=== PATIENT | female | born 1995 | race American Indian/Alaskan Native ===

== ENCOUNTER 2017-06-27 19:46 | Emergency (ER) | payer MEDICAID ==
[2017-06-27 20:39] LABS: Basophils % (Auto) 0.2 % (0.0-1.8); Eosinophils # (Auto) 0.2 K/mm3 (0.0-0.4); Eosinophils % (Auto) 1.9 % (0.0-4.3); Hematocrit 33.3 % (30.3-42.9); Hemoglobin 11.4 gm/dl (10.1-14.3); Lymphocytes # (Auto) 2.7 K/mm3 (1.2-5.4); Lymphocytes % (Auto) 22.2 % (13.4-35.0); Mean Corpuscular HGB Conc 34 % (30-34); Mean Corpuscular Hemoglobin 30 pg (28-32); Mean Corpuscular Volume 87 fl (79-97); Monocytes # (Auto) 0.8 K/mm3 (0.0-0.8); Monocytes % (Auto) 6.5 % (0.0-7.3); Platelet Count 266 K/mm3 (140-440); Red Blood Count 3.84 M/mm3 (3.65-5.03); Red Cell Distribution Width 13.9 % (13.2-15.2)
[2017-06-27 20:59] LABS: BUN/Creatinine Ratio 10; Blood Urea Nitrogen 5 mg/dL (7-17); Calcium 8.7 mg/dL (8.4-10.2); Hemolysis Index 10
[2017-06-28 04:53] LABS: Bacteria,Urine 1+ /HPF (Negative); Bilirubin,Urine NEG (Negative); Blood,Urine NEG (Negative); Color,Urine Yellow (Yellow); Mucus,Urine FEW /HPF; Nitrite,Urine NEG (Negative); Protein,Urine <15 mg/dL mg/dL (Negative)
[2017-06-28] MEDS ORDERED: TYLENOL PO ONE (06:33)
[2017-06-28] MEDS ORDERED: TYLENOL ONE (06:34)
--- NOTE | 2017-06-28 06:35 | Emergency Department Report ---
ED General Adult HPI - General Chief complaint: Abdominal Pain Stated complaint: CHEST PAIN,ABDOMINAL PAIN Time Seen by Provider: 06/28/17 06:24 Source: patient, RN notes reviewed, old records reviewed Mode of arrival: Ambulatory Limitations: No Limitations - History of Present Illness Initial comments: This is a 21-year-old female, the patient is previously unknown to this provider. The patient presents to the ER with 2 complaints. Her first complaint is bilateral lower abdominal pain. The pain is crampy, intermittent, increases with palpation, decreases with rest, and patient indicates his penis for a day or so. No fevers, chills, vomiting, urinary symptoms, patient is feeling constipated, and she has no vaginal discharge. She is not sure if she is . She thinks that she is . There is no vaginal bleeding. Next complaint is chest pain. The chest pain is central. It does not radiate to the back, arms or neck. There is no vomiting, there is no diaphoresis, there is no shortness of breath, there is no leg pain, there is no leg swelling , patient does not take oral contraceptives, as far she is aware, she's never had a blood clot either in the legs or lungs. -: Gradual, days(s) (1.5) Location: chest, abdomen Severity scale (0 -10): 0 Quality: aching Consistency: intermittent Improves with: rest Worsens with: movement Associated Symptoms: chest pain. denies: confusion, cough, diaphoresis, fever/ chills, headaches, loss of appetite, malaise, nausea/vomiting, rash, shortness of breath, syncope, weakness - Related Data Previous Rx's Medication Instructions Recorded Last Taken Type Ibuprofen [Motrin 800 MG tab] 800 mg PO Q8HR PRN #30 tablet 12/13/16 Unknown Rx Lidocain2.5%/Prilocai2.5% [Emla] 5 gm TP ONCE PRN #1 tube 12/13/16 Unknown Rx Acetaminophen [Tylenol Arthritis] 650 mg PO Q6HR PRN #30 tablet.er 06/28/17 Unknown Rx Doxylamine Succinate/Vit B6 1 each PO QHS PRN #30 tablet. 06/28/17 Unknown Rx [Candelario Rizzo 10-10 mg Tablet] Nitrofurantoin [place]/M-Cryst 100 mg PO Q12HR #14 capsule 06/28/17 Unknown Rx [Macrobid CAP] Vit Calc,Iron,Folic 1 each PO QDAY #30 tablet 06/28/17 Unknown Rx [ Vitamins] Allergies Allergy/AdvReac Type Severity Reaction Status Date / Time No Known Drug Allergies Allergy Unknown Verified 06/27/17 19:51 ED Review of Systems ROS: Stated complaint: CHEST PAIN,ABDOMINAL PAIN Other details as noted in HPI ED Past Medical Hx - Past Medical History Hx Hypertension: No Hx Congestive Heart Failure: No Hx Diabetes: No Hx Deep Vein Thrombosis: No Hx Renal Disease: No Hx Sickle Cell Disease: No Hx Seizures: No Hx Asthma: No Hx COPD: No Hx HIV: No - Surgical History Past Surgical History?: No - Social History Smoking Status: Never Smoker Substance Use Type: None - Medications Home Medications: Home Medications Medication Instructions Recorded Confirmed Last Taken Type Ibuprofen [Motrin 800 MG tab] 800 mg PO Q8HR PRN #30 tablet 12/13/16 Unknown Rx Lidocain2.5%/Prilocai2.5% [Emla] 5 gm TP ONCE PRN #1 tube 12/13/16 Unknown Rx Acetaminophen [Tylenol Arthritis] 650 mg PO Q6HR PRN #30 tablet.er 06/28/17 Unknown Rx Doxylamine Succinate/Vit B6 1 each PO QHS PRN #30 tablet. 06/28/17 Unknown Rx [Candelario Rizzo 10-10 mg Tablet] Nitrofurantoin [place]/M-Cryst 100 mg PO Q12HR #14 capsule 06/28/17 Unknown Rx [Macrobid CAP] Vit Calc,Iron,Folic 1 each PO QDAY #30 tablet 06/28/17 Unknown Rx [ Vitamins] ED Physical Exam - General Limitations: No Limitations General appearance: alert, in no apparent distress - Head Head exam: Present: atraumatic, normocephalic - Eye Eye exam: Present: normal appearance, EOMI. Absent: nystagmus - ENT ENT exam: Present: normal exam, normal orophraynx, mucous membranes moist, normal external ear exam - Neck Neck exam: Present: normal inspection, full ROM - Respiratory Respiratory exam: Present: normal lung sounds bilaterally. Absent: respiratory distress, chest wall tenderness - Cardiovascular Cardiovascular Exam: Present: regular rate, normal rhythm, normal heart sounds. Absent: systolic murmur, diastolic murmur, rubs, gallop - GI/Abdominal GI/Abdominal exam: Present: soft, tenderness (uterus is enlarged, and there is suprapubic tenderness. There is no right lower quadrant tenderness, there is no right upper quadrant tenderness, there is negative Rovsing sign; there is negative Kate's), normal bowel sounds. Absent: distended, guarding, rebound, rigid - External exam: Present: normal external exam Speculum exam: Present: normal speculum exam Bi-manual exam: Present: normal bi-manual exam, other (escorted by KYLE MENDOZA). Absent: cervical motion tendernes, adnexal tenderness, adnexal mass, uterine enlargement, uterine tenderness - Extremities Exam Extremities exam: Present: normal inspection, full ROM, normal capillary refill. Absent: pedal edema, joint swelling, calf tenderness - Back Exam Back exam: Present: normal inspection, full ROM. Absent: tenderness, CVA tenderness (R), paraspinal tenderness, vertebral tenderness - Neurological Exam Neurological exam: Present: alert, oriented X3, CN II-XII intact, normal gait, other (Extraocular movements intact. Tongue midline. No facial droop. Facial sensation intact to light touch in the V1, V2, V3 distribution bilaterally. 5 and 5 strength in 4 extremities.. Sensation is intact to light touch in 4 extremities.). Absent: motor sensory deficit - Psychiatric Psychiatric exam: Present: normal affect, normal mood - Skin Skin exam: Present: warm, dry, intact, normal color. Absent: rash ED Course Vital Signs 06/27/17 06/27/17 06/28/17 19:49 19:51 03:43 Temperature 97.9 F 98.2 F Pulse Rate 107 H 72 Respiratory 18 18 Rate Blood Pressure 117/50 117/50 111/69 O2 Sat by Pulse 99 100 Oximetry 06/28/17 06/28/17 06/28/17 05:19 05:31 05:45 Temperature Pulse Rate 78 76 71 Respiratory 18 19 15 Rate Blood Pressure 110/60 110/60 O2 Sat by Pulse 100 100 Oximetry 06/28/17 06/28/17 06/28/17 06:00 06:15 06:33 Temperature Pulse Rate 83 74 Respiratory 14 14 16 Rate Blood Pressure 97/66 97/66 O2 Sat by Pulse 99 99 Oximetry 06/28/17 08:21 Temperature Pulse Rate Respiratory 17 Rate Blood Pressure O2 Sat by Pulse 100 Oximetry - Reevaluation(s) Reevaluation #1: 06/28/17 08:14 Vital Signs 06/27/17 06/27/17 06/28/17 19:49 19:51 03:43 Temperature 97.9 F 98.2 F Pulse Rate 107 H 72 Respiratory 18 18 Rate Blood Pressure 117/50 117/50 111/69 O2 Sat by Pulse 99 100 Oximetry 06/28/17 06/28/17 06/28/17 05:19 05:31 05:45 Temperature Pulse Rate 78 76 71 Respiratory 18 19 15 Rate Blood Pressure 110/60 110/60 O2 Sat by Pulse 100 100 Oximetry 06/28/17 06/28/17 06/28/17 06:00 06:15 06:33 Temperature Pulse Rate 83 74 Respiratory 14 14 16 Rate Blood Pressure 97/66 97/66 O2 Sat by Pulse 99 99 Oximetry Lab Results 06/27/17 06/27/17 06/27/17 Range/Units 20:17 20:17 20:17 WBC 12.2 H (4.5-11.0) K/mm3 RBC 3.84 (3.65-5.03) M/mm3 Hgb 11.4 (10.1-14.3) gm/dl Hct 33.3 (30.3-42.9) % MCV 87 (79-97) fl MCH 30 (28-32) pg MCHC 34 (30-34) % RDW 13.9 (13.2-15.2) % Plt Count 266 (140-440) K/mm3 Lymph % (Auto) 22.2 (13.4-35.0) % [place] % (Auto) 6.5 (0.0-7.3) % Eos % (Auto) 1.9 (0.0-4.3) % Baso % (Auto) 0.2 (0.0-1.8) % Lymph # 2.7 (1.2-5.4) K/mm3 [place] # 0.8 (0.0-0.8) K/mm3 Eos # 0.2 (0.0-0.4) K/mm3 Baso # 0.0 (0.0-0.1) K/mm3 Seg Neutrophils % 69.2 (40.0-70.0) % Seg Neutrophils # 8.4 H (1.8-7.7) K/mm3 PT (12.2-14.9) Sec. INR (0.87-1.13) APTT (24.2-36.6) Sec. D-Dimer (0-234) ng/mlDDU Sodium 139 (137-145) mmol/L Potassium 3.6 (3.6-5.0) mmol/L Chloride 101.4 (98-107) mmol/L Carbon Dioxide 23 (22-30) mmol/L Anion Gap 18 mmol/L BUN 5 L (7-17) mg/dL Creatinine 0.5 L (0.7-1.2) mg/dL Estimated GFR > 60 ml/min BUN/Creatinine Ratio 10 % Glucose 98 (65-100) mg/dL Calcium 8.7 (8.4-10.2) mg/dL Troponin T < 0.010 (0.00-0.029) ng/mL HCG, Qual Positive (Negative) HCG, Quant (0-4) mIU/mL Urine Color (Yellow) Urine Turbidity (Clear) Urine pH (5.0-7.0) Ur Specific Cliff (1.003-1.030) Urine Protein (Negative) mg/dL Urine Glucose (UA) (Negative) mg/dL Urine Ketones (Negative) mg/dL Urine Blood (Negative) Urine Nitrite (Negative) Urine Bilirubin (Negative) Urine Urobilinogen (<2.0) mg/dL Ur Leukocyte Esterase (Negative) Urine WBC (Auto) (0.0-6.0) /HPF Urine RBC (Auto) (0.0-6.0) /HPF U Epithel Cells (Auto) (0-13.0) /HPF Urine Bacteria (Auto) (Negative) /HPF Urine Mucus /HPF 06/27/17 06/28/17 06/28/17 Range/Units 23:12 03:05 06:59 WBC (4.5-11.0) K/mm3 RBC (3.65-5.03) M/mm3 Hgb (10.1-14.3) gm/dl Hct (30.3-42.9) % MCV (79-97) fl MCH (28-32) pg MCHC (30-34) % RDW (13.2-15.2) % Plt Count (140-440) K/mm3 Lymph % (Auto) (13.4-35.0) % [place] % (Auto) (0.0-7.3) % Eos % (Auto) (0.0-4.3) % Baso % (Auto) (0.0-1.8) % Lymph # (1.2-5.4) K/mm3 [place] # (0.0-0.8) K/mm3 Eos # (0.0-0.4) K/mm3 Baso # (0.0-0.1) K/mm3 Seg Neutrophils % (40.0-70.0) % Seg Neutrophils # (1.8-7.7) K/mm3 PT 13.2 (12.2-14.9) Sec. INR 0.95 (0.87-1.13) APTT 30.3 (24.2-36.6) Sec. D-Dimer 422.40 H (0-234) ng/mlDDU Sodium (137-145) mmol/L Potassium (3.6-5.0) mmol/L Chloride (98-107) mmol/L Carbon Dioxide (22-30) mmol/L Anion Gap mmol/L BUN (7-17) mg/dL Creatinine (0.7-1.2) mg/dL Estimated GFR ml/min BUN/Creatinine Ratio % Glucose (65-100) mg/dL Calcium (8.4-10.2) mg/dL Troponin T < 0.010 < 0.010 (0.00-0.029) ng/mL HCG, Qual (Negative) HCG, Quant (0-4) mIU/mL Urine Color (Yellow) Urine Turbidity (Clear) Urine pH (5.0-7.0) Ur Specific [place] (1.003-1.030) Urine Protein (Negative) mg/dL Urine Glucose (UA) (Negative) mg/dL Urine Ketones (Negative) mg/dL Urine Blood (Negative) Urine Nitrite (Negative) Urine Bilirubin (Negative) Urine Urobilinogen (<2.0) mg/dL Ur Leukocyte Esterase (Negative) Urine WBC (Auto) (0.0-6.0) /HPF Urine RBC (Auto) (0.0-6.0) /HPF U Epithel Cells (Auto) (0-13.0) /HPF Urine Bacteria (Auto) (Negative) /HPF Urine Mucus /HPF 12/31/17 12/31/17 Range/Units 06:59 Unknown WBC (4.5-11.0) K/mm3 RBC (3.65-5.03) M/mm3 Hgb (10.1-14.3) gm/dl Hct (30.3-42.9) % MCV (79-97) fl MCH (28-32) pg MCHC (30-34) % RDW (13.2-15.2) % Plt Count (140-440) K/mm3 Lymph % (Auto) (13.4-35.0) % [place] % (Auto) (0.0-7.3) % Eos % (Auto) (0.0-4.3) % Baso % (Auto) (0.0-1.8) % Lymph # (1.2-5.4) K/mm3 [place] # (0.0-0.8) K/mm3 Eos # (0.0-0.4) K/mm3 Baso # (0.0-0.1) K/mm3 Seg Neutrophils % (40.0-70.0) % Seg Neutrophils # (1.8-7.7) K/mm3 PT (12.2-14.9) Sec. INR (0.87-1.13) APTT (24.2-36.6) Sec. D-Dimer (0-234) ng/mlDDU Sodium (137-145) mmol/L Potassium (3.6-5.0) mmol/L Chloride (98-107) mmol/L Carbon Dioxide (22-30) mmol/L Anion Gap mmol/L BUN (7-17) mg/dL Creatinine (0.7-1.2) mg/dL Estimated GFR ml/min BUN/Creatinine Ratio % Glucose (65-100) mg/dL Calcium (8.4-10.2) mg/dL Troponin T (0.00-0.029) ng/mL HCG, Qual (Negative) HCG, Quant 8547 H (0-4) mIU/mL Urine Color Yellow (Yellow) Urine Turbidity Slightly-cloudy (Clear) Urine pH 6.0 (5.0-7.0) Ur Specific Cliff 1.013 (1.003-1.030) Urine Protein <15 mg/dl (Negative) mg/dL Urine Glucose (UA) Neg (Negative) mg/dL Urine Ketones Neg (Negative) mg/dL Urine Blood Neg (Negative) Urine Nitrite Neg (Negative) Urine Bilirubin Neg (Negative) Urine Urobilinogen 4.0 (<2.0) mg/dL Ur Leukocyte Esterase Mod (Negative) Urine WBC (Auto) 16.0 H (0.0-6.0) /HPF Urine RBC (Auto) 3.0 (0.0-6.0) /HPF U Epithel Cells (Auto) 7.0 (0-13.0) /HPF Urine Bacteria (Auto) 1+ (Negative) /HPF Urine Mucus Few /HPF Reevaluation #2: 06/28/17 08:14 Differential diagnosis, including but not limited to: , urinary tract infection, placental abruption, placenta previa, acute coronary syndrome, pneumonia, pulmonary embolus, costochondritis Assessment and plan: 21-year-old female with 2 complaints. In terms of the patient's abdominal pain, she has suprapubic tenderness, but no right lower quadrant tenderness or rebound or guarding. Her urinalysis has 1+ bacteria, with positive white blood cells and leukocyte esterase, and she is also incidentally found to be . She does not endorse irritative urinary symptoms, may have asymptomatic bacteriuria, but given , will be treated empirically with Macrobid. My bedside ultrasound demonstrates an intrauterine , with appropriate motion and heart rate, fetus appears to be large, most likely in the second trimester. Formal OB ultrasound is pending. There is no gynecologic tenderness, and when I went into the room to examine the patient she was sleeping and appeared quite comfortable. She is given acetaminophen for her pain. In terms of the patient's chest pain, based on the clinical history she is low risk by well's criteria, low risk by VIVEK score, low risk by heart score, EKG negative for stemming but shows a left axis deviation, troponin negative 3, given chest pain, status, left axis deviation, d-dimer sent, it is elevated, and a nuclear medicine study is pending. Extensive discussion with patient regarding need for diagnostics to evaluate her for her chest pain. Risks, benefits, alternatives were discussed with patient. Reevaluation #3: 06/28/17 12:02 Patient has been in the ER for 16 hours without clinical decompensation. Her ultrasound demonstrates a 19 week which she was not aware of. Her x- ray of the chest was negative, and her nuclear medicine study was unremarkable and low probability. Her vital signs have remained stable, and her repeat physical exam is also unremarkable. Patient likely has asymptomatic bacteriuria , and was started empirically on Macrobid therapy. She will also be started on treated vitamins, she will be given pain medication and nausea medication. She is suitable to follow up with outpatient cardiology for her chest pain, and she is instructed to follow up as soon as possible with an outpatient braille operator to start care. She will be discharged at this time, return precautions are reviewed. ED Medical Decision Making - Lab Data Result diagrams: 06/27/17 20:17 06/27/17 20:17 Vital Signs 06/27/17 06/27/17 06/28/17 19:49 19:51 03:43 Temperature 97.9 F 98.2 F Pulse Rate 107 H 72 Respiratory 18 18 Rate Blood Pressure 117/50 117/50 111/69 O2 Sat by Pulse 99 100 Oximetry 06/28/17 06/28/17 06/28/17 05:19 05:31 05:45 Temperature Pulse Rate 78 76 71 Respiratory 18 19 15 Rate Blood Pressure 110/60 110/60 O2 Sat by Pulse 100 100 Oximetry 06/28/17 06/28/17 06/28/17 06:00 06:15 06:33 Temperature Pulse Rate 83 74 Respiratory 14 14 16 Rate Blood Pressure 97/66 97/66 O2 Sat by Pulse 99 99 Oximetry Lab Results 06/27/17 06/27/17 06/27/17 Range/Units 20:17 20:17 20:17 WBC 12.2 H (4.5-11.0) K/mm3 RBC 3.84 (3.65-5.03) M/mm3 Hgb 11.4 (10.1-14.3) gm/dl Hct 33.3 (30.3-42.9) % MCV 87 (79-97) fl MCH 30 (28-32) pg MCHC 34 (30-34) % RDW 13.9 (13.2-15.2) % Plt Count 266 (140-440) K/mm3 Lymph % (Auto) 22.2 (13.4-35.0) % [place] % (Auto) 6.5 (0.0-7.3) % Eos % (Auto) 1.9 (0.0-4.3) % Baso % (Auto) 0.2 (0.0-1.8) % Lymph # 2.7 (1.2-5.4) K/mm3 [place] # 0.8 (0.0-0.8) K/mm3 Eos # 0.2 (0.0-0.4) K/mm3 Baso # 0.0 (0.0-0.1) K/mm3 Seg Neutrophils % 69.2 (40.0-70.0) % Seg Neutrophils # 8.4 H (1.8-7.7) K/mm3 PT (12.2-14.9) Sec. INR (0.87-1.13) APTT (24.2-36.6) Sec. D-Dimer (0-234) ng/mlDDU Sodium 139 (137-145) mmol/L Potassium 3.6 (3.6-5.0) mmol/L Chloride 101.4 (98-107) mmol/L Carbon Dioxide 23 (22-30) mmol/L Anion Gap 18 mmol/L BUN 5 L (7-17) mg/dL Creatinine 0.5 L (0.7-1.2) mg/dL Estimated GFR > 60 ml/min BUN/Creatinine Ratio 10 % Glucose 98 (65-100) mg/dL Calcium 8.7 (8.4-10.2) mg/dL Troponin T < 0.010 (0.00-0.029) ng/mL HCG, Qual Positive (Negative) HCG, Quant (0-4) mIU/mL Urine Color (Yellow) Urine Turbidity (Clear) Urine pH (5.0-7.0) Ur Specific Cliff (1.003-1.030) Urine Protein (Negative) mg/dL Urine Glucose (UA) (Negative) mg/dL Urine Ketones (Negative) mg/dL Urine Blood (Negative) Urine Nitrite (Negative) Urine Bilirubin (Negative) Urine Urobilinogen (<2.0) mg/dL Ur Leukocyte Esterase (Negative) Urine WBC (Auto) (0.0-6.0) /HPF Urine RBC (Auto) (0.0-6.0) /HPF U Epithel Cells (Auto) (0-13.0) /HPF Urine Bacteria (Auto) (Negative) /HPF Urine Mucus /HPF 06/27/17 06/28/17 06/28/17 Range/Units 23:12 03:05 06:59 WBC (4.5-11.0) K/mm3 RBC (3.65-5.03) M/mm3 Hgb (10.1-14.3) gm/dl Hct (30.3-42.9) % MCV (79-97) fl MCH (28-32) pg MCHC (30-34) % RDW (13.2-15.2) % Plt Count (140-440) K/mm3 Lymph % (Auto) (13.4-35.0) % [place] % (Auto) (0.0-7.3) % Eos % (Auto) (0.0-4.3) % Baso % (Auto) (0.0-1.8) % Lymph # (1.2-5.4) K/mm3 [place] # (0.0-0.8) K/mm3 Eos # (0.0-0.4) K/mm3 Baso # (0.0-0.1) K/mm3 Seg Neutrophils % (40.0-70.0) % Seg Neutrophils # (1.8-7.7) K/mm3 PT 13.2 (12.2-14.9) Sec. INR 0.95 (0.87-1.13) APTT 30.3 (24.2-36.6) Sec. D-Dimer 422.40 H (0-234) ng/mlDDU Sodium (137-145) mmol/L Potassium (3.6-5.0) mmol/L Chloride (98-107) mmol/L Carbon Dioxide (22-30) mmol/L Anion Gap mmol/L BUN (7-17) mg/dL Creatinine (0.7-1.2) mg/dL Estimated GFR ml/min BUN/Creatinine Ratio % Glucose (65-100) mg/dL Calcium (8.4-10.2) mg/dL Troponin T < 0.010 < 0.010 (0.00-0.029) ng/mL HCG, Qual (Negative) HCG, Quant (0-4) mIU/mL Urine Color (Yellow) Urine Turbidity (Clear) Urine pH (5.0-7.0) Ur Specific [place] (1.003-1.030) Urine Protein (Negative) mg/dL Urine Glucose (UA) (Negative) mg/dL Urine Ketones (Negative) mg/dL Urine Blood (Negative) Urine Nitrite (Negative) Urine Bilirubin (Negative) Urine Urobilinogen (<2.0) mg/dL Ur Leukocyte Esterase (Negative) Urine WBC (Auto) (0.0-6.0) /HPF Urine RBC (Auto) (0.0-6.0) /HPF U Epithel Cells (Auto) (0-13.0) /HPF Urine Bacteria (Auto) (Negative) /HPF Urine Mucus /HPF 06/28/17 06/28/17 Range/Units 06:59 Unknown WBC (4.5-11.0) K/mm3 RBC (3.65-5.03) M/mm3 Hgb (10.1-14.3) gm/dl Hct (30.3-42.9) % MCV (79-97) fl MCH (28-32) pg MCHC (30-34) % RDW (13.2-15.2) % Plt Count (140-440) K/mm3 Lymph % (Auto) (13.4-35.0) % [place] % (Auto) (0.0-7.3) % Eos % (Auto) (0.0-4.3) % Baso % (Auto) (0.0-1.8) % Lymph # (1.2-5.4) K/mm3 [place] # (0.0-0.8) K/mm3 Eos # (0.0-0.4) K/mm3 Baso # (0.0-0.1) K/mm3 Seg Neutrophils % (40.0-70.0) % Seg Neutrophils # (1.8-7.7) K/mm3 PT (12.2-14.9) Sec. INR (0.87-1.13) APTT (24.2-36.6) Sec. D-Dimer (0-234) ng/mlDDU Sodium (137-145) mmol/L Potassium (3.6-5.0) mmol/L Chloride (98-107) mmol/L Carbon Dioxide (22-30) mmol/L Anion Gap mmol/L BUN (7-17) mg/dL Creatinine (0.7-1.2) mg/dL Estimated GFR ml/min BUN/Creatinine Ratio % Glucose (65-100) mg/dL Calcium (8.4-10.2) mg/dL Troponin T (0.00-0.029) ng/mL HCG, Qual (Negative) HCG, Quant 8547 H (0-4) mIU/mL Urine Color Yellow (Yellow) Urine Turbidity Slightly-cloudy (Clear) Urine pH 6.0 (5.0-7.0) Ur Specific [place] 1.013 (1.003-1.030) Urine Protein <15 mg/dl (Negative) mg/dL Urine Glucose (UA) Neg (Negative) mg/dL Urine Ketones Neg (Negative) mg/dL Urine Blood Neg (Negative) Urine Nitrite Neg (Negative) Urine Bilirubin Neg (Negative) Urine Urobilinogen 4.0 (<2.0) mg/dL Ur Leukocyte Esterase Mod (Negative) Urine WBC (Auto) 16.0 H (0.0-6.0) /HPF Urine RBC (Auto) 3.0 (0.0-6.0) /HPF U Epithel Cells (Auto) 7.0 (0-13.0) /HPF Urine Bacteria (Auto) 1+ (Negative) /HPF Urine Mucus Few /HPF - EKG Data 06/28/17 08:17 EKG demonstrates sinus, 91 bpm, left axis deviation, QTC prolonged, not morphologically consistent with STEMI, EKG #2 is unchanged. - Radiology Data Radiology results: pending, report reviewed, image reviewed Referring Physician: TATY ROLON Patient Name: KATHI WARNER Date of : 1995 Sex: Female Report Date: 2017-06-28 Report Status: Finalized Findings [facility] [address] [place] [address] Ultrasound Report Signed Patient: KATHI WARNER MR#: [id number] : 1995 Acct:[id number] Age/Sex: 21 / F ADM Date: 06/27/17 Loc: ED Attending Dr: Ordering Physician: TATY ROLON MD Date of Service: 06/28/17 Procedure(s): US OB >= 14 weeks Fetus Accession Number(s): [id number] cc: TATY ROLON MD FINAL REPORT EXAM: US OB gt; = 14 WEEKS FETUS HISTORY: lower abd pain COMPARISONS: None. FINDINGS: Transabdominal grayscale, color Doppler and M-mode 2nd trimester ultrasound Single living intrauterine with recorded cardiac activity 130 beats per minutes. Posterior placenta the is within normal limits and inferior placental tip does not cover the internal cervical os. The cervix appears closed and measures up to 4.8 cm in length. Amniotic fluid volume is subjectively normal. Estimated gestational age from composite biometric measurements is 19 weeks 5 days with delivery date of 11/17/2017. anatomy is grossly unremarkable within limits of transverse positioning. Biparietal diameter is 4.2 cm Head circumference is 16.5 cm Abdominal small 0.4 cm Femoral length is 3.3 cm IMPRESSION: Single living intrauterine with estimated gestational age of 19 weeks 5 days and delivery date of 11/17/2017. No evident complications. Consider additional imaging for worsening/persistent symptoms. Transcribed By: MB Dictated By: TATY HDZ MD Electronically Authenticated By: TATY HDZ MD Signed Date/Time: 06/28/17408 DD/ 8 TD/TT: 06/28/17408 X-ray of the chest is negative. Nuclear medicine study: medicine; Critical care attestation.: If time is entered above; I have spent that time in minutes in the direct care of this critically ill patient, excluding procedure time. ED Disposition Clinical Impression: , Abdominal pain Disposition: DC-01 TO HOME OR SELFCARE Is pt being admited?: No Does the pt Need Aspirin: No Condition: Stable Instructions: Abdominal Pain (ED) Additional Instructions: Ultrasound demonstrated that the patient is 19 weeks . Take the nausea medication, pain medication, vitamins as directed. Follow up as soon as possible with an outpatient [facility] doctor to initiate and begin care. Not following up as recommended may result in loss, complications, disability, paralysis, loss of quality of life. Therefore, follow-up with any of the listed gynecology groups as soon as possible. Follow-up with any of the listed cardiology groups within the next week for your chest pain. Return to the ER right away with new pain, worsening pain, migration of pain, fevers, chills, lethargy, irritability, projectile vomiting, change in mental status, confusion, inability to tolerate liquid feeds. Prescriptions: Doxylamine Succinate/Vit B6 [Candelario Rizzo 10-10 mg Tablet] 1 each PO QHS PRN #30 tablet. PRN Reason: Nausea Acetaminophen [Tylenol Arthritis] 650 mg PO Q6HR PRN #30 tablet.er PRN Reason: Pain Nitrofurantoin [place]/M-Cryst [Macrobid CAP] 100 mg PO Q12HR #14 capsule Vit Calc,Iron,Folic [ Vitamins] 1 each PO QDAY #30 tablet Referrals: TATY JOHNSON MD [Primary Care Provider] - 3-5 Days [facility] [Provider Group] - 3-5 Days [facility] [Provider Group] - 3-5 Days [facility] [Provider Group] - 3-5 Days [facility] [Provider Group] - 3-5 Days [facility] [Provider Group] - 3-5 Days
[2017-06-28 07:43] LABS: INR 0.95 (0.87-1.13)
[2017-06-28 07:44] LABS: Partial Thromboplastin Time 30.3 Sec. (24.2-36.6)
--- NOTE | 2017-06-28 08:12 | Ultrasound Report ---
FINAL REPORT EXAM: US OB > = 14 WEEKS FETUS HISTORY: lower abd pain COMPARISONS: None. FINDINGS: Transabdominal grayscale, color Doppler and M-mode 2nd trimester ultrasound Single living intrauterine with recorded cardiac activity 130 beats per minutes. Posterior placenta the is within normal limits and inferior placental tip does not cover the internal cervical os. The cervix appears closed and measures up to 4.8 cm in length. Amniotic fluid volume is subjectively normal. Estimated gestational age from composite biometric measurements is 19 weeks 5 days with delivery date of 11/17/2017. anatomy is grossly unremarkable within limits of transverse positioning. Biparietal diameter is 4.2 cm Head circumference is 16.5 cm Abdominal small 0.4 cm Femoral length is 3.3 cm IMPRESSION: Single living intrauterine with estimated gestational age of 19 weeks 5 days and delivery date of 11/17/2017. No evident complications. Consider additional imaging for worsening/persistent symptoms.
--- NOTE | 2017-06-28 09:08 | XRay Report ---
Chest 2 views: History: Chest pain. Findings: Normal cardiomediastinal silhouette. Trachea is midline. No consolidation, pneumothorax or pleural effusion. Impression: No acute cardiopulmonary findings.
--- NOTE | 2017-06-28 10:45 | Nuclear Medicine Report ---
PERFUSION LUNG SCAN: History: Chest pain. Findings: After injection of Technetium 99m macroaggregated albumin gamma camera imaging of the lungs in multiple projections demonstrates normal pulmonary contours with a homogeneous distribution of activity. No focal areas of perfusion deficiency are identified. IMPRESSION: Normal study.
[2017-06-28 12:18] VITALS: BP 111/48
== END 2017-06-28 12:15 | disposition home or self-care (01) ==
LOC: ED 19:46
DX: O26.892 Other specified pregnancy related conditions, second trimester (principal); R10.30 Lower abdominal pain, unspecified; Z3A.20 20 weeks gestation of pregnancy
CPT/HCPCS: 36415; 71020; 76805; 78580; 80048; 81001; 84484; 84702; 84703; 85025; 85379; 85610; 85730; 86850; 86900; 86901; 87210; 87591; 93005; 93010; 99285; A9540